=== PATIENT | male | born 1945 | race Caucasian/White ===

== ENCOUNTER 2020-11-04 21:48 | Emergency (ER) | payer MEDICARE ==
[~2020-11-04 21:48] MED LIST: FLOMAX0.4 MG PO; NORCO 7.5-3251 EACH PO
== END 2020-11-04 23:00 | disposition left against medical advice (07) ==
LOC: ER1 21:48
DX: Z53.21 Procedure and treatment not carried out due to patient leaving prior to being seen by health care provider (principal)